=== PATIENT | female | born 1970 | race Caucasian/White ===

== ENCOUNTER 2016-10-24 14:06 | Inpatient (IN) | payer OTHER ==
[~2016-10-24] VITALS: Ht 175.3 cm; Wt 113.8 kg
[~2016-10-24 14:06] MED LIST: AMBIEN10 M1 GT; AMBIEN10 MG PO; BACTRIM,SEPT1 TABLET PO; CELEXA10 MG PO; CLEOCIN300 MG; CLONAZEPAM0.5 MG; ENDOCET 5-3251 EACH; FLEXERIL10 MG PO; GLUCOPHAGE XR,500 MG PO; GLUCOPHAGE500 MG PO; HUMALOG100 UNIT/2 SQ; HUMALOG100 UNITS/ PO; HUMULIN 70100 UNIT/1 SQ; HUMULIN N100 UNIT/1 IM; HUMULIN N100 UNIT/1 SQ; LEXAPRO10 MG PO; LEXAPRO20 MG PO; LIDODERM 5% P1 PATCH TD; LISINOPRIL10 MG PO; LISINOPRIL5 MG PO; LYRICA50 MG PO; MOTRIN800 MG PO; MUPIROCIN22 GM; NAPROXEN500 MG PO; NEXIUM10 MG PO; NORVASC5 MG PO; NOVOLIN N100 UNITS/ SC; OPANA ER15 MG PO; OPANA ER30 MG PO; OPANA ER40 MG PO; OXYCODONE HCL 30 MG; OXYCODONE HCL15 MG; OXYCODONE HCL15 MG PO; OXYCONTIN15 MG PO; PERCOCET 5/31 TABLET PO; PERCOCET 7.5-51 EACH PO; PRINIVIL10 MG PO; PROZAC40 MG PO; ROXICODONE15 MG PO; TEMAZEPAM15 MG; VENTOLIN HFA18 GM; VICODIN 5-5001 EACH PO; XANAX0.25 MG PO; XANAX0.5 MG PO
[2016-10-24 14:47] LABS: POINT-OF-CARE METER ID UU13113778
[2016-10-24 15:05] LABS: HEMATOCRIT 42.4 % (36.0-46.0); MCH 30.7 PG (29.0-34.0); MCHC 34.4 G/DL (30.0-36.0); MCV 89.1 FL (83-99); RBC DIS.WIDTH-CV 13.5 % (11.8-14.6); RBC DIS.WIDTH-SD 43.2 % (39-53); RED BLOOD COUNT 4.76 M/uL (3.80-5.20); WHITE BLOOD COUNT 9.4 K/uL (4.1-10.2)
[2016-10-24 15:34] LABS: CHLORIDE 103 mEq/L (99-109); POTASSIUM 4.3 mEq/L (3.7-5.4); SODIUM 136 mEq/L (136-147)
[2016-10-24 15:36] LABS: GLUCOSE 294 mg/dL (70-99)
[2016-10-24 15:38] LABS: ANION GAP 11 MEQ/L (2-14); TOTAL BILIRUBIN 0.4 mg/dL (0.0-1.0)
[2016-10-24 15:40] LABS: ALKALINE PHOSPHATASE 76 IU/L (3-129); GFR ESTIMATE (CALCULATED) > 59 mL/min/
[2016-10-24 15:41] LABS: UREA NITROGEN (BUN) 14 mg/dL (9-23)
[2016-10-24 15:44] LABS: HEMATOLOGY COMMENT 1 SMEAR COMPATIBLE; PLATELET COUNT 249 K/uL (156-360)
[2016-10-24 16:38] LABS: ERTH.SED.RATE 31 MM/HR (0-20)
[2016-10-24] MEDS ORDERED: HUMULIN N100 UNITS/ SC (20:29)
[2016-10-24] MEDS ORDERED: LEXAPRO20 MG PO (20:29)
[2016-10-24] MEDS ORDERED: NEURONTIN800 MG PO (20:29)
[2016-10-24] MEDS ORDERED: TRAZODONE HCL50 MG PO (20:29)
[2016-10-25 00:32] VITALS: BP 114/60
[2016-10-25 01:10] LABS: C-REACTIVE PROTEIN 5.3 MG/L (0-10)
[2016-10-25 04:56] VITALS: BP 114/57
[2016-10-25 06:42] LABS: ANION GAP 9 MEQ/L (2-14); CHLORIDE 103 MEQ/L (99-109); GFR ESTIMATE (CALCULATED) > 59 mL/min/; GLUCOSE 280 mg/dL (70-99); POTASSIUM 4.1 MEQ/L (3.7-5.4); SAMPLE HEMOLYSIS CHECK 0; SAMPLE ICTERIC CHECK 0; SAMPLE LIPEMIA CHECK 0; SODIUM 136 MEQ/L (136-147); UREA NITROGEN (BUN) 20 mg/dL (9-23)
[2016-10-25 06:51] LABS: HEMATOCRIT 37.8 % (36.0-46.0); MCH 29.5 PG (29.0-34.0); MCV 92.2 FL (83-99); MEAN PLAT.VOLUME 10.7 uM^3 (9.5-12.4); PLATELET COUNT 229 K/uL (156-360); RBC DIS.WIDTH-CV 13.6 % (11.8-14.6); RBC DIS.WIDTH-SD 45.8 % (39-53); WHITE BLOOD COUNT 8.2 K/uL (4.1-10.2)
[2016-10-25 08:57] VITALS: BP 118/70
[2016-10-25 12:08] VITALS: BP 135/65
[2016-10-25 20:00] VITALS: BP 108/59
[2016-10-26 01:00] VITALS: BP 110/60
[2016-10-26 04:47] VITALS: BP 126/62
[2016-10-26 08:17] VITALS: BP 109/58
[2016-10-26 08:17] LABS: POINT-OF-CARE METER ID UU14162513
[2016-10-26 12:26] LABS: POINT-OF-CARE METER ID UU14162513
[2016-10-26 12:28] VITALS: BP 126/68
== END 2016-10-26 14:19 | disposition home or self-care (01) | DRG 74 ==
LOC: EME 14:06 → EDOF 23:06 → 5WEST 10-25 00:11
PROVIDERS: Hospitalist
DX: E11.610 Type 2 diabetes mellitus with diabetic neuropathic arthropathy (principal); E11.65 Type 2 diabetes mellitus with hyperglycemia; G89.4 Chronic pain syndrome; J44.9 Chronic obstructive pulmonary disease, unspecified; B18.2 Chronic viral hepatitis C; I73.9 Peripheral vascular disease, unspecified; F17.210 Nicotine dependence, cigarettes, uncomplicated; E66.01 Morbid (severe) obesity due to excess calories; Z68.36 Body mass index [BMI] 36.0-36.9, adult; Z89.431 Acquired absence of right foot; Z89.412 Acquired absence of left great toe; Z89.422 Acquired absence of other left toe(s); Z88.5 Allergy status to narcotic agent; Z91.041 Radiographic dye allergy status
CPT/HCPCS: 73630; 73720; 80048; 80053; 82948; 85027; 85651; 86140; 87040; 99281; 99285; G0378; J1170; J1200; J1644; J1815; J1885; J2405; J3370; J7030

== ENCOUNTER 2016-11-24 10:48 | Day surgery (SDC) | payer OTHER ==
[~2016-11-24] VITALS: Ht 175.3 cm; Wt 103.6 kg
[~2016-11-24 10:48] MED LIST changes: +CILOSTAZOL100 MG PO; +HUMULIN N100 UNITS/ SC; +NEURONTIN800 MG PO; +OXYCODONE HCL10 MG PO; +TRAZODONE HCL50 MG PO
[2016-11-24 11:22] VITALS: BP 164/82
[2016-11-24 11:58] LABS: POINT-OF-CARE METER ID UU14174212
[2016-11-24 12:37] LABS: METH RESISTANT S AUREUS PCR POSITIVE (NEGATIVE)
[2016-11-24 12:40] LABS: PROBE CHECK PASS
[2016-11-24 14:03] LABS: POINT-OF-CARE METER ID UU13113655; POINT-OF-CARE USER ID ENVKLS06
[2016-11-24 14:29] LABS: POINT-OF-CARE METER ID UU13113655; POINT-OF-CARE USER ID ENVKLS06
[2016-11-24 17:27] VITALS: BP 131/70
[2016-11-24 17:38] VITALS: BP 131/70
[2016-11-25 00:04] VITALS: BP 146/75
[2016-11-25 04:14] VITALS: BP 128/76
[2016-11-25 08:25] VITALS: BP 123/62
[2016-11-25 11:36] VITALS: BP 123/59
== END 2016-11-25 18:55 | disposition home or self-care (01) ==
LOC: SDC 10:48 → 2SOUTH 14:22 → 2EAST 14:22 → 2SOUTH 14:22 → SDC 14:25 → 2EAST 17:10
PROVIDERS: Surgery
DX: L97.529 Non-pressure chronic ulcer of other part of left foot with unspecified severity (principal); M20.42 Other hammer toe(s) (acquired), left foot; E11.9 Type 2 diabetes mellitus without complications; I10 Essential (primary) hypertension; M19.90 Unspecified osteoarthritis, unspecified site; Z86.73 Personal history of transient ischemic attack (TIA), and cerebral infarction without residual deficits; F17.200 Nicotine dependence, unspecified, uncomplicated
CPT/HCPCS: 82948; 87641; 88304; G0378; J1170; J1650; J1815; J3010; J7120

== ENCOUNTER 2017-02-15 14:54 | Emergency (ER) | payer OTHER ==
[~2017-02-15] VITALS: Ht 175.3 cm; Wt 118.0 kg
[2017-02-15 15:26] LABS: BASOPHIL COUNT 0.1 K/uL (0-0.1); EOSINOPHIL (%) 4.3 % (0-5); EOSINOPHIL COUNT 0.4 K/uL (0-0.3); HEMATOCRIT 47.4 % (36.0-46.0); IMMATURE GRANULOCYTE (%) 0.3 % (0.0-0.7); INSTRUMENT ABS NEUTROPHIL CT 4.7 K/uL; LYMPHOCYTE COUNT 3.6 K/uL (1.0-2.8); MCH 29.5 PG (29.0-34.0); MCHC 32.9 G/DL (30.0-36.0); MCV 89.8 FL (83-99); MEAN PLAT.VOLUME 9.7 uM^3 (9.5-12.4); MONOCYTE (%) 4.8 % (3-12); MONOCYTE COUNT 0.4 K/uL (0-0.8); NEUTROPHIL (%) 51.3 % (45-76); NEUTROPHIL COUNT 4.7 K/uL (1.8-6.4); PLATELET COUNT 273 K/uL (156-360); RBC DIS.WIDTH-CV 13.5 % (11.8-14.6); RBC DIS.WIDTH-SD 44.4 % (39-53); RED BLOOD COUNT 5.28 M/uL (3.80-5.20); WHITE BLOOD COUNT 9.2 K/uL (4.1-10.2)
[2017-02-15 15:54] LABS: ANION GAP 12 MEQ/L (2-14); CHLORIDE 98 MEQ/L (99-109); GFR ESTIMATE (CALCULATED) > 59 mL/min/; GLUCOSE 313 mg/dL (70-99); POTASSIUM 4.4 MEQ/L (3.7-5.4); SAMPLE HEMOLYSIS CHECK 0; SAMPLE ICTERIC CHECK 0; SAMPLE LIPEMIA CHECK 0; SODIUM 134 MEQ/L (136-147); UREA NITROGEN (BUN) 13 mg/dL (9-23)
[2017-02-15 16:05] LABS: ADD MIUA? YES; BILIRUBIN NEGATIVE; BLOOD NEGATIVE; COLOR YELLOW ((YELLOW)); GLUCOSE (STRIP) >=500; KETONES NEGATIVE; LEUKOCYTES NEGATIVE; NITRITE NEGATIVE; PROTEIN (STRIP) NEGATIVE; SPECIFIC GRAVITY 1.024 (1.000-1.030); UROBILINOGEN 0.2 MG/DL (0.2-1.0)
[2017-02-15] MEDS ORDERED: LOSARTAN POTASS50 MG PO (16:05)
[2017-02-15 16:11] LABS: BACTERIA RARE /HPF; EPITHELIAL CELLS 1+ /HPF; HYALINE CASTS 0-5 /LPF; MUCUS TRACE /LPF; RED BLOOD CELLS 0-5 /HPF (0-5); UCUL ADDED? NO; WHITE BLOOD CELLS 0-5 /HPF (0-5)
[2017-02-15] MEDS ORDERED: LOTRISONE LOTIO30 ML TP (16:23)
[2017-02-15 16:39] VITALS: BP 147/93
== END 2017-02-15 16:40 | disposition home or self-care (01) ==
LOC: EME 14:54
PROVIDERS: Emergency Medicine
DX: E11.65 Type 2 diabetes mellitus with hyperglycemia (principal); B35.4 Tinea corporis; R10.9 Unspecified abdominal pain; F32.9 Major depressive disorder, single episode, unspecified; I10 Essential (primary) hypertension; G43.909 Migraine, unspecified, not intractable, without status migrainosus; F17.200 Nicotine dependence, unspecified, uncomplicated; Z91.14 Patient's other noncompliance with medication regimen; M79.671 Pain in right foot; M79.89 Other specified soft tissue disorders
CPT/HCPCS: 73630; 80048; 81003; 85025; 99281; 99284

== ENCOUNTER 2017-03-03 06:08 | Emergency (ER) | payer OTHER ==
[~2017-03-03] VITALS: Ht 175.3 cm; Wt 111.9 kg
[~2017-03-03 06:08] MED LIST changes: +LOSARTAN POTASS50 MG PO; +LOTRISONE LOTIO30 ML TP
[2017-03-03] MEDS ORDERED: SUBOXONE 12 MG1 EACH SL (06:54)
[2017-03-03] MEDS ORDERED: TRAZODONE HCL50 MG PO (06:55)
[2017-03-03] MEDS ORDERED: ALPRAZOLAM0.5 MG PO (06:55)
[2017-03-03 08:06] LABS: ANION GAP 8 MEQ/L (2-14); CHLORIDE 98 MEQ/L (99-109); POTASSIUM 4.8 MEQ/L (3.7-5.4); SAMPLE HEMOLYSIS CHECK 1; SAMPLE ICTERIC CHECK 0; SAMPLE LIPEMIA CHECK 0; SODIUM 138 MEQ/L (136-147); TOTAL BILIRUBIN 0.4 MG/DL (0.0-1.0)
[2017-03-03 08:07] LABS: EOSINOPHIL (%) 5.8 % (0-5); EOSINOPHIL COUNT 0.4 K/uL (0-0.3); HEMATOCRIT 42.7 % (36.0-46.0); IMMATURE GRANULOCYTE (%) 0.9 % (0.0-0.7); IMMATURE GRANULOCYTE COUNT 0.1 K/uL; INSTRUMENT ABS NEUTROPHIL CT 2.7 K/uL; LYMPHOCYTE COUNT 3.3 K/uL (1.0-2.8); MCH 29.6 PG (29.0-34.0); MCHC 31.9 G/DL (30.0-36.0); MCV 92.8 FL (83-99); MONOCYTE (%) 6.2 % (3-12); MONOCYTE COUNT 0.4 K/uL (0-0.8); NEUTROPHIL (%) 39.2 % (45-76); NEUTROPHIL COUNT 2.7 K/uL (1.8-6.4); RBC DIS.WIDTH-CV 13.5 % (11.8-14.6); RBC DIS.WIDTH-SD 45.9 % (39-53)
[2017-03-03 08:11] LABS: ALKALINE PHOSPHATASE 84 IU/L (3-129); GFR ESTIMATE (CALCULATED) > 59 mL/min/; GLUCOSE 216 mg/dL (70-99); UREA NITROGEN (BUN) 14 mg/dL (9-23)
[2017-03-03 08:49] LABS: PLATELET CLUMPS PRESENT - PLATELET COUNT APPEARS ADQ.
[2017-03-03 08:51] LABS: IMM.PLATELET FRACTION ND (1-7); MEAN PLAT.VOLUME ND uM^3 (9.5-12.4); PLATELET COUNT ND K/uL (156-360)
[2017-03-03 11:15] VITALS: BP 89/77
== END 2017-03-03 11:10 | disposition left against medical advice (07) ==
LOC: EME 06:08
PROVIDERS: Emergency Medicine
DX: S09.90XA Unspecified injury of head, initial encounter (principal); S30.0XXA Contusion of lower back and pelvis, initial encounter; W01.198A Fall on same level from slipping, tripping and stumbling with subsequent striking against other object, initial encounter; Y92.002 Bathroom of unspecified non-institutional (private) residence as the place of occurrence of the external cause; B36.8 Other specified superficial mycoses; I10 Essential (primary) hypertension; E11.9 Type 2 diabetes mellitus without complications; F32.9 Major depressive disorder, single episode, unspecified; Z79.4 Long term (current) use of insulin; Z85.43 Personal history of malignant neoplasm of ovary; F17.200 Nicotine dependence, unspecified, uncomplicated
CPT/HCPCS: 70450; 70551; 72131; 74177; 80053; 81003; 85025; 93005; 99281; 99284; J7030

== ENCOUNTER 2017-03-21 19:48 | Emergency (ER) | payer OTHER ==
[~2017-03-21] VITALS: Ht 175.3 cm; Wt 104.5 kg
[~2017-03-21 19:48] MED LIST changes: +ALPRAZOLAM0.5 MG PO; +SUBOXONE 12 MG1 EACH SL
[2017-03-21 21:15] LABS: EOSINOPHIL (%) 5.2 % (0-5); EOSINOPHIL COUNT 0.4 K/uL (0-0.3); HEMATOCRIT 41.6 % (36.0-46.0); IMMATURE GRANULOCYTE (%) 0.4 % (0.0-0.7); INSTRUMENT ABS NEUTROPHIL CT 3.5 K/uL; LYMPHOCYTE COUNT 2.6 K/uL (1.0-2.8); MCH 29.8 PG (29.0-34.0); MCHC 32.5 G/DL (30.0-36.0); MCV 91.8 FL (83-99); MEAN PLAT.VOLUME 10.2 uM^3 (9.5-12.4); MONOCYTE (%) 8.9 % (3-12); MONOCYTE COUNT 0.6 K/uL (0-0.8); NEUTROPHIL (%) 48.8 % (45-76); NEUTROPHIL COUNT 3.5 K/uL (1.8-6.4); PLATELET COUNT 196 K/uL (156-360); RBC DIS.WIDTH-CV 13.2 % (11.8-14.6); RBC DIS.WIDTH-SD 45.1 % (39-53); RED BLOOD COUNT 4.53 M/uL (3.80-5.20); WHITE BLOOD COUNT 7.2 K/uL (4.1-10.2)
[2017-03-21 21:28] LABS: CHLORIDE 94 mEq/L (99-109); POTASSIUM 3.7 mEq/L (3.7-5.4); SODIUM 130 mEq/L (136-147)
[2017-03-21 21:31] LABS: ANION GAP 11 MEQ/L (2-14)
[2017-03-21 21:34] LABS: GFR ESTIMATE (CALCULATED) > 59 mL/min/; UREA NITROGEN (BUN) 5 mg/dL (9-23)
[2017-03-21 21:39] LABS: GLUCOSE 487 mg/dL (70-99)
[2017-03-21 21:46] LABS: TROP-I INTERPRETATION NEGATIVE; TROPONIN-I < 0.01 ng/mL (0.0-0.30)
[2017-03-21] MEDS ORDERED: CLEOCIN300 MG PO (23:36)
[2017-03-21] MEDS ORDERED: OXAYDO5 MG PO (23:36)
[2017-03-22 00:01] VITALS: BP 138/87
== END 2017-03-22 00:02 | disposition left against medical advice (07) ==
LOC: EME 19:48
PROVIDERS: Emergency Medicine
PROC: 0H98XZZ Drainage of Buttock Skin, External Approach (ICD-10-PCS; principal; 2017-03-21)
DX: L02.31 Cutaneous abscess of buttock (principal); E11.65 Type 2 diabetes mellitus with hyperglycemia; S93.401A Sprain of unspecified ligament of right ankle, initial encounter; R55 Syncope and collapse; M25.551 Pain in right hip; M25.571 Pain in right ankle and joints of right foot; S00.31XA Abrasion of nose, initial encounter; M25.471 Effusion, right ankle; W19.XXXA Unspecified fall, initial encounter; J32.9 Chronic sinusitis, unspecified; I10 Essential (primary) hypertension; Z88.0 Allergy status to penicillin; Z79.4 Long term (current) use of insulin; F17.200 Nicotine dependence, unspecified, uncomplicated
CPT/HCPCS: 70450; 73502; 80048; 84484; 85025; 93005; 99281; 99285